=== PATIENT | female | born 1965 | race Caucasian/White ===

== ENCOUNTER 2018-04-19 10:59 | Emergency (ER) | payer OTHER ==
[~2018-04-19] VITALS: Ht 170.2 cm; Wt 72.6 kg
== END 2018-04-19 14:29 | disposition home or self-care (01) ==
LOC: ER 10:59
DX: M54.2 Cervicalgia (principal); R20.2 Paresthesia of skin

== ENCOUNTER → 2018-06-23 | Day surgery (SDC) | payer OTHER ==
[~2018-06-23] MED LIST: AMBIEN5 MG; CLONAZEPAM0.5 MG; NAPR500T14; NEURO MAX85 GM; NEURONTIN600 MG; ORENCIA87.5 MG/0.
== END | disposition home or self-care (01) ==
LOC: ADM 06-20 08:15 → CIR.AMB 06-20 08:15
DX: N62 Hypertrophy of breast (principal)

== ENCOUNTER 2023-02-13 20:25 | Emergency (ER) | payer OTHER ==
[~2023-02-13] VITALS: Ht 170.2 cm; Wt 81.6 kg
[2023-02-13] MEDS ORDERED: NEURONTIN800 MG PO (20:44)
[2023-02-13] MEDS ORDERED: HUMIRA40 MG/0.2 SUBCUTANEO (20:44)
== END 2023-02-14 04:07 | disposition home or self-care (01) ==
LOC: ER 20:25
DX: K52.9 Noninfective gastroenteritis and colitis, unspecified (principal); Z88.0 Allergy status to penicillin; Z88.2 Allergy status to sulfonamides; Z20.822 Contact with and (suspected) exposure to COVID-19